=== PATIENT | male | born 1995 | race African-American/Black ===

== ENCOUNTER 2018-04-17 09:25 | Emergency (ER) | payer OTHER ==
[~2018-04-17] VITALS: Ht 175.3 cm; Wt 101.5 kg
[2018-04-17 09:37] VITALS: TEMP 36.8; Ht 175.3 cm; Wt 101.5 kg
[2018-04-17] MEDS ORDERED: KETOROLAC TROMETHAMINE 30 MG/ML VIAL IV STA (10:24)
[2018-04-17] MEDS ORDERED: CYCLOBENZAPRINE HCL 5 MG TAB PO STA (10:24)
[2018-04-17] MEDS ORDERED: SODIUM CHLORIDE 0.9% 1000ML 1,000 ML IV STA (10:24)
[2018-04-17 11:22] LABS: BASO % 0.5 %; BASO ABS # 0.03 K/uL (0-0.2); EOS % 5.4 %; EOS ABS # 0.33 K/uL (0-0.5); HEMATOCRIT 40.9 % (42-52); HEMOGLOBIN 13.7 g/dL (14.0-18.0); IG# 0.02 K/uL (0.00-0.02); LYMPH % 25.5 %; LYMPH ABS # 1.55 K/uL (1.2-3.4); MEAN CELL VOLUME 85.4 fL (80-100); MEAN CORPUSCULAR HEMOGLOBIN 28.6 pg (25-34); MEAN CORPUSCULAR HGB CONC 33.5 g/dl (32-36); MEAN PLATELET VOLUME 10.2 fL (7.4-10.4); MONO % 11.7 %; MONO ABS # 0.71 K/uL (0.11-0.59); NEUT % 56.6 %; NEUT ABS # 3.44 K/uL (1.4-6.5); PLATELET COUNT 268 K/uL (130-400); RED CELL DISTRIBUTION WIDTH CV 12.9 % (11.5-14.5); RED CELL DISTRIBUTION WIDTH SD 40.4 fL (36.4-46.3); WHITE BLOOD COUNT 6.08 K/uL (4.8-10.8)
--- NOTE | 2018-04-17 11:32 | DIAGNOSTIC IMAGING REPORT ---
L-SPINE MIN 4 VIEWS ROUTINE CLINICAL HISTORY: Low back pain COMPARISON STUDY: No previous studies for comparison. FINDINGS: There is a probable age-indeterminate fracture of the lower sacrum as visualized in the lateral view. No lumbar vertebral body fractures or subluxations are visualized. No destructive lesions are evident. The disc space heights appear well-preserved for age. IMPRESSION: 1. Probable age-indeterminate fracture the lower sacrum 2. No lumbar fractures or subluxations identified 3. No destructive lesions are visualized Electronically signed by: Duc Felton M.D. 04/17/2018 11:31 AM Dictated Date/Time: 04/17/2018 11:29 AM
[2018-04-17 11:41] LABS: ALBUMIN 3.6 gm/dl (3.4-5.0); CALCIUM 8.5 mg/dl (8.5-10.1); CREATININE 0.94 mg/dl (0.60-1.40); POTASSIUM 4.2 mmol/L (3.5-5.1); TOTAL PROTEIN 7.4 gm/dl (6.4-8.2)
--- NOTE | 2018-04-17 11:46 | DIAGNOSTIC IMAGING REPORT ---
CHEST 2 VIEWS ROUTINE CLINICAL HISTORY: pain with deep breath, SOB dyspnea COMPARISON STUDY: No previous studies for comparison. FINDINGS: The bones soft tissues and hemidiaphragms are normal. The cardiomediastinal silhouette is normal. The lungs are clear. The pulmonary vasculature is normal. IMPRESSION: Negative chest. The above report was generated using voice recognition software. It may contain grammatical, syntax or spelling errors. Electronically signed by: Jignesh Ramos M.D. 04/17/2018 11:44 AM Dictated Date/Time: 04/17/2018 11:44 AM
--- NOTE | 2018-04-17 11:55 | EMERGENCY ROOM VISIT NOTE ---
History First contact with patient: 09:53 Chief Complaint: RESPIRATORY PROBLEMS Stated Complaint: SEVERE BACK PAIN CAUSING BREATHING PROBLEMS Nursing Triage Summary: pt reports he is having severe right lower back pain radiates to left side. feels sob. denies n/v.moving bowels or urination History of Present Illness The patient is a 22 year old male who presents to the Emergency Room with complaints of right lower back pain that began several weeks ago when lifting weights. The patient took approximately 1 week off of lifting and feels as though the symptoms improved. Yesterday, when not exerting himself significantly, the patient states the pain returned and tends to radiate up into the chest. He believes this is causing some difficulty with breathing. He does have some pain with deep inspiration. He denies any difficulty with urination or lower extremity weakness. He has had no loss of bowel or bladder function. He denies any history of disc herniation. 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 Review of Systems See HPI for pertinent positives & negatives. A total of 10 systems reviewed and were otherwise negative. Past Medical/Surgical History Denies Social History Smoking Status: Never Smoker Marital Status: single Housing Status: lives with roommate Occupation Status: [employer] student Current/Historical Medications Scheduled Valacyclovir Hcl (Valtrex), 1 TAB PO BID Physical Exam Vital Signs Date Time Temp Pulse Resp B/P (MAP) Pulse Ox O2 Delivery O2 Flow Rate FiO2 04/17/18 14:05 57 12 164/85 100 04/17/18 13:22 48 04/17/18 13:00 51 18 145/77 99 Room Air 04/17/18 12:10 50 20 141/85 99 Room Air 04/17/18 09:55 56 04/17/18 09:37 36.8 56 18 124/77 97 Room Air Physical Exam Vital signs reviewed. General: Well-appearing 22-year-old male in no significant distress. HEENT: No scleral icterus, PERRLA, neck supple. Atraumatic. Cardiovascular: Regular rate and rhythm, no extra sounds. Pulmonary: Clear to auscultation bilaterally, normal work of breathing. Abdomen: Soft, nontender, nondistended, positive bowel sounds. Musculoskeletal: Atraumatic, no peripheral edema. Mild tenderness to palpation of the right lumbar paraspinous muscles. Neurologic: Patient awake alert and oriented x 3 Skin: Warm, dry, no rash Medical Decision & Procedures Laboratory Results 8/27/18 11:02 Red Blood Count 4.79, Mean Corpuscular Volume 85.4, Mean Corpuscular Hemoglobin 28.6, Mean Corpuscular Hemoglobin Concent 33.5, Mean Platelet Volume 10.2, Neutrophils (%) (Auto) 56.6, Lymphocytes (%) (Auto) 25.5, Monocytes (%) (Auto) 11.7, Eosinophils (%) (Auto) 5.4, Basophils (%) (Auto) 0.5, Neutrophils # (Auto ) 3.44, Lymphocytes # (Auto) 1.55, Monocytes # (Auto) 0.71, Eosinophils # (Auto ) 0.33, Basophils # (Auto) 0.03 04/17/18 11:02 Test 04/17/18 11:02 04/17/18 11:04 04/17/18 12:15 White Blood Count 6.08 K/uL (4.8-10.8) Red Blood Count 4.79 M/uL (4.7-6.1) Hemoglobin 13.7 g/dL (14.0-18.0) Hematocrit 40.9 % (42-52) Mean Corpuscular Volume 85.4 fL (80-100) Mean Corpuscular Hemoglobin 28.6 pg (25-34) Mean Corpuscular Hemoglobin Concent 33.5 g/dl (32-36) Platelet Count 268 K/uL (130-400) Mean Platelet Volume 10.2 fL (7.4-10.4) Neutrophils (%) (Auto) 56.6 % Lymphocytes (%) (Auto) 25.5 % Monocytes (%) (Auto) 11.7 % Eosinophils (%) (Auto) 5.4 % Basophils (%) (Auto) 0.5 % Neutrophils # (Auto) 3.44 K/uL (1.4-6.5) Lymphocytes # (Auto) 1.55 K/uL (1.2-3.4) Monocytes # (Auto) 0.71 K/uL (0.11-0.59) Eosinophils # (Auto) 0.33 K/uL (0-0.5) Basophils # (Auto) 0.03 K/uL (0-0.2) RDW Standard Deviation 40.4 fL (36.4-46.3) RDW Coefficient of Variation 12.9 % (11.5-14.5) Immature Granulocyte % (Auto) 0.3 % Immature Granulocyte # (Auto) 0.02 K/uL (0.00-0.02) Anion Gap 7.0 mmol/L (3-11) Est Creatinine Clear Calc Drug Dose 143.6 ml/min Estimated GFR () 131.9 Estimated GFR (Non- 113.8 BUN/Creatinine Ratio 14.3 (10-20) Calcium Level 8.5 mg/dl (8.5-10.1) Total Bilirubin 0.5 mg/dl (0.2-1) Direct Bilirubin 0.1 mg/dl (0-0.2) Aspartate Amino Transf (AST/SGOT) 12 U/L (15-37) Alanine Aminotransferase (ALT/SGPT) 19 U/L (12-78) Alkaline Phosphatase 37 U/L (45-117) Total Creatine Kinase 161 U/L (39-308) Total Protein 7.4 gm/dl (6.4-8.2) Albumin 3.6 gm/dl (3.4-5.0) Bedside D-Dimer 31 ng/mlFEU (0-450) Urine Color YELLOW Urine Appearance CLEAR (CLEAR) Urine pH 7.0 (4.5-7.5) Urine Specific [place] 1.022 (1.000-1.030) Urine Protein NEG (NEG) Urine Glucose (UA) NEG (NEG) Urine Ketones NEG (NEG) Urine Occult Blood NEG (NEG) Urine Nitrite NEG (NEG) Urine Bilirubin NEG (NEG) Urine Urobilinogen NEG (NEG) Urine Leukocyte Esterase NEG (NEG) Medications Administered Medications (Trade) Dose Ordered Sig/Leonard Route Start Time Stop Time Status Last Admin Dose Admin Ketorolac Tromethamine (Toradol Inj) 30 mg NOW STAT IV 04/17/18 10:24 04/17/18 10:27 DC 04/17/18 11:12 30 MG Sodium Chloride 1,000 ml @ 999 mls/hr Q1H1M STAT IV 04/17/18 10:24 04/17/18 11:24 DC 04/17/18 11:12 999 MLS/HR Cyclobenzaprine HCl (Flexeril Tab) 5 mg NOW STAT PO 04/17/18 10:24 04/17/18 10:27 DC 04/17/18 11:12 5 MG ECG Per My Interpretation Indication: SOB/dyspnea Rate (beats per minute): 53 Rhythm: sinus bradycardia Findings: RBBB (Incomplete) Medical Decision Differential diagnosis: Etiologies such as infections, reactive airway disease, pneumonia, pneumothorax , COPD, CHF, cardiac ischemia, pulmonary embolism, musculoskeletal, gastrointestinal, as well as others were entertained. Patient was evaluated and appeared to be in no significant distress. IV access was obtained and laboratory work was drawn. Patient was given IV Toradol and p.o. Flexeril. Patient's laboratory evaluation is fairly unrevealing. Lumbar spine x-rays reveal evidence of an age indeterminate sacral fracture. This is likely the source of the patient's pain, particularly after lifting weights. It is likely a muscular sensation he is feeling with the shortness of breath. D -dimer and troponin are negative. EKG reveals no evidence of acute ischemia or dysrhythmia. Chest x-ray is clear. The patient was informed of the findings. He was advised to use ibuprofen as needed for pain. He was advised to avoid heavy lifting with the back. Follow-up with his PCP or [facility] and return to the ER for worsening of symptoms or any medical concerns. Medication Reconcilliation Current Medication List: was personally reviewed by me Blood Pressure Screening Patient's blood pressure: Normal blood pressure Impression Primary Impression: Sacral fracture, closed Departure Information Prescriptions Valacyclovir Hcl (VALTREX) 1 Gm Tab 1 TAB PO BID for 1 Day, #2 TAB 0 Refills Prov: Sarah Cortez M.D. 04/17/18 Referrals [facility] (PCP) Patient Instructions My [facility]
[2018-04-17 14:05] VITALS: BP 164/85; PULSE 57; O2SAT 100
[2018-04-17] MEDS ORDERED: VALA1TAB31 PO (14:13)
== END 2018-04-17 14:10 | disposition home or self-care (01) ==
LOC: C.EDB 09:27
DX: S32.10XA Unspecified fracture of sacrum, initial encounter for closed fracture (principal); X50.0XXA Overexertion from strenuous movement or load, initial encounter; Z79.899 Other long term (current) drug therapy